=== PATIENT | female | born 1955 | race Caucasian/White ===

== ENCOUNTER 2020-11-05 07:47 | Outpatient (CLI) | payer MEDICARE, SELFPAY ==
[2020-11-05 12:29] LABS: Hematocrit 49.4 % (37.0-47.0); Hemoglobin 15.9 g/dL (12.0-15.0); Mean Corpuscular HGB Conc 32.2 g/dl (32-36); Mean Corpuscular Hemoglobin 30.3 pg (26-34); Mean Corpuscular Volume 94.3 fl (80-100); Mean Platelet Volume 9.5 fl (7.4-10.4); Platelet Count Result 312 k/mm3 (150-375); Red Blood Count 5.24 M/mm3 (4.2-5.4); Red Cell Distribution Width 14.3 % (11.5-14.5)
[2020-11-05 12:32] LABS: Anion Gap 6 mmol/L (8-16); Blood Urea Nitrogen 27 mg/dL (7-17); Calcium 9.3 mg/dL (8.4-10.2); Carbon Dioxide 28 mmol/L (22-30); Chloride 104 mmol/L (98-107); Estimated Glomerular Filt Rate 55; Glucose 131 mg/dL (65-105); HDL Direct 37 mg/dL; Potassium 4.4 mmol/L (3.4-5.0); Sodium 138 mmol/L (137-145)
[2020-11-05 12:44] LABS: LDL Cholesterol Direct 115 mg/dL
[2020-11-05 13:07] LABS: Microalbumin Urine Random 7.8 mg/L (0-16.7)
[2020-11-05 13:27] LABS: Vitamin B12 > 1000.0 pg/mL (239-931)
== END 2020-11-05 07:48 | disposition home or self-care (01) ==
LOC: ANHWCLAB 07:57
PROVIDERS: PCP Family Medicine; Referring Provider Internal Medicine Endocrinology, Diabetes & Metabolism; Visit Provider Internal Medicine Endocrinology, Diabetes & Metabolism
DX: E11.65 Type 2 diabetes mellitus with hyperglycemia (principal); E78.5 Hyperlipidemia, unspecified
CPT/HCPCS: 36415; 80048; 82043; 82607; 83718; 83721; 84443; 85027

== ENCOUNTER 2021-12-04 01:00 | Day surgery (SDC) | payer MEDICARE, SELFPAY ==
[2021-11-20 10:28] VITALS: BMI 29.2
[2021-12-04 10:39] VITALS: BP 139/55; PULSE 88; RESP 18; TEMP 36.3; O2SAT 99
--- NOTE | 2021-12-04 10:43 | PM.IMHP ---
H&P: HPI History of Present Illness Date/Time: 12/04/21 10:43 Chief Complaint: History of colon polyps. Narrative: This is a 66-year-old white female patient presents for colonoscopy. Patient has a prior history of adenomatous colon polyp in 2016. A serrated adenoma type polyp was removed in 2010. Patient reports that her current weight appetite bowel movements are normal. Patient family history is significant that her father had colon cancer. Patient presents today for neoplasia screening. Review of Systems Review of Systems: Review of systems is noncontributory. [facility] Past Medical History Medical History (Updated 12/04/21 @ 10:45 by Phong Cisneros MD) Asthma Back pain Depression Hypertension Migraine SOB (shortness of breath) Type 2 diabetes mellitus with hyperglycemia Surgical History Surgical History H/O breast biopsy H/O mastectomy Family History Family History Mother Family history of thyroid disease Hypertension Family history of arthritis Family history of malignant neoplasm of breast in first degree relative Family history of hearing loss Diabetes mellitus Family history of elevated blood lipids Depression Grandparent Family history of osteoporosis Family history of glaucoma Family history of arthritis Family history of hearing loss Hypertension Cerebrovascular accident Father Family history of glaucoma Family history of cataracts Family history of arthritis Carcinoma of colon Malignant neoplasm of prostate Family history of lung cancer Family history of lung disease Asthma Patient's father is Social History Social History Smoking packs per day: 1.5 Smoking cigarettes per day: 30.0 Years smoked: 34 Smoking pack-years: 51.00 Tobacco type: cigarettes Second hand tobacco smoke exposure: Yes Smoking end date: 07/12/01 Alcohol intake: never Living arrangements: with family Spiritual care concerns: No Meds Home Medications and Allergies Home Medications Medication Instructions Recorded Confirmed Type beclomethasone dipropionate 80 2 inh inhalation Q12H PRN 07/01/21 12/01/21 History mcg/actuation HFA breath activated Shortness Of Breath aerosol (Qvar RediHaler) cyclobenzaprine 10 mg tablet 10 mg PO BID PRN Muscle Spasm 07/01/21 12/01/21 History ibuprofen 800 mg tablet 800 mg PO BID PRN Pain 07/01/21 12/01/21 History naphazoline-pheniramine 0.11285 1 drp EACH EYE QID PRN allergy 07/01/21 12/01/21 History %-0.315 % eye drops (Opcon-A) symptoms flash glucose sensor (FreeStyle #1 ea 08/18/21 12/01/21 Rx Laurence 2 Sensor) insulin degludec 100 unit/mL (3 45 unit (0.45 mL) subcut DAILY 90 08/26/21 12/01/21 Rx mL) subcutaneous pen ( #42 mL FlexTouch U-100 insulin) pen needle, diabetic 32 gauge x #100 ea 09/30/21 12/01/21 Rx 5/32 (BD Ultra-Fine Mag Pen Needle) metformin 500 mg tablet,extended 1,000 mg PO BID 90 days #360 tabs 11/11/21 12/01/21 Rx release 24hr acetaminophen 500 mg tablet 1,000 mg PO BID 11/20/21 12/01/21 History (Tylenol Extra Strength) dulaglutide 4.5 mg/0.5 mL 4.5 mg subcut WEEKLY 11/20/21 12/01/21 History subcutaneous pen injector (Trulicity) empagliflozin 25 mg tablet 25 mg PO DAILY 11/20/21 12/01/21 History (Jardiance) escitalopram oxalate 20 mg tablet 20 mg PO DAILY 11/20/21 12/01/21 History fluticasone propionate 50 1 spray intranasal Q12H PRN 11/20/21 12/01/21 History mcg/actuation nasal Allergy Symptoms spray,suspension hydrochlorothiazide 12.5 mg capsule 12.5 mg PO DAILY 11/20/21 12/01/21 History lisinopril 40 mg tablet 40 mg PO DAILY 11/20/21 12/01/21 History rosuvastatin 5 mg tablet 5 mg PO DAILY 11/20/21 12/01/21 History sulfamethoxazole 800 1 tablet PO Q12H 10 days #20 tabs
[2021-12-04] MEDS: LACTATED RINGERS 1,000 ML 150 ML IV CONT (10:47)
[2021-12-04 11:02] LABS: Glucose Point of Care 105 mg/dl (65-105)
--- NOTE | 2021-12-04 11:27 | WPDANESEPPF ---
Anes - Initial Pre Proc Eval Procedure: Operation Date: 12/04/21 11:15 Proposed Procedures p Screening Colonoscopy - Phong Cisneros MD Date/Time: 12/04/21 11:27 Surgeon: Phong Cisneros MD Pre Op Diagnosis: family hx colon ca, hx of colon polyps Patient Data Age: 66 Gender: F Height: 1.68 m Weight: 79.7 kg Last Vital Signs Temp 97.4 F L 12/04/21 10:39 Pulse 88 12/04/21 10:39 Resp 18 12/04/21 10:39 BP 139/55 L 12/04/21 10:39 Pulse Ox 99 12/04/21 10:39 O2 Del Method Room Air 12/04/21 10:39 Allergies Allergy/AdvReac Type Severity Reaction Status Date / Time No Known Allergies Allergy Verified 12/04/21 10:32 Home Medications Medication Instructions Recorded Confirmed Type beclomethasone dipropionate 80 2 inh inhalation Q12H PRN 07/01/21 12/01/21 History mcg/actuation HFA breath activated Shortness Of Breath aerosol (Qvar RediHaler) cyclobenzaprine 10 mg tablet 10 mg PO BID PRN Muscle Spasm 07/01/21 12/01/21 History ibuprofen 800 mg tablet 800 mg PO BID PRN Pain 07/01/21 12/01/21 History naphazoline-pheniramine 0.24203 1 drp EACH EYE QID PRN allergy 07/01/21 12/01/21 History %-0.315 % eye drops (Opcon-A) symptoms flash glucose sensor (FreeStyle #1 ea 08/18/21 12/01/21 Rx Laurence 2 Sensor) insulin degludec 100 unit/mL (3 45 unit (0.45 mL) subcut DAILY 90 08/26/21 12/01/21 Rx mL) subcutaneous pen ( #42 mL FlexTouch U-100 insulin) pen needle, diabetic 32 gauge x #100 ea 09/30/21 12/01/21 Rx 5/32 (BD Ultra-Fine Mag Pen Needle) metformin 500 mg tablet,extended 1,000 mg PO BID 90 days #360 tabs 11/11/21 12/01/21 Rx release 24hr acetaminophen 500 mg tablet 1,000 mg PO BID 11/20/21 12/01/21 History (Tylenol Extra Strength) dulaglutide 4.5 mg/0.5 mL 4.5 mg subcut WEEKLY 11/20/21 12/01/21 History subcutaneous pen injector (Trulicity) empagliflozin 25 mg tablet 25 mg PO DAILY 11/20/21 12/01/21 History (Jardiance) escitalopram oxalate 20 mg tablet 20 mg PO DAILY 11/20/21 12/01/21 History fluticasone propionate 50 1 spray intranasal Q12H PRN 11/20/21 12/01/21 History mcg/actuation nasal Allergy Symptoms spray,suspension hydrochlorothiazide 12.5 mg capsule 12.5 mg PO DAILY 11/20/21 12/01/21 History lisinopril 40 mg tablet 40 mg PO DAILY 11/20/21 12/01/21 History rosuvastatin 5 mg tablet 5 mg PO DAILY 11/20/21 12/01/21 History sulfamethoxazole 800 1 tablet PO Q12H 10 days #20 tabs 12/01/21 12/04/21 Rx mg-trimethoprim 160 mg tablet (Bactrim DS) Laboratory Tests 12/04/21 10:58 POC Capillary Glucose 105 mg/dl mg/dl (65-105) Patient hx anesthesia problems: none Family hx anesthesia problems: none Results Review: All pre-operative results and documents have been reviewed as part of the pre-operative evaluation. [facility] Past Medical History Medical History (Updated 12/04/21 @ 10:45 by Phong Cisneros MD) Asthma Back pain Depression Hypertension Migraine SOB (shortness of breath) Type 2 diabetes mellitus with hyperglycemia Surgical History Surgical History H/O breast biopsy H/O mastectomy Family History Family History Mother Family history of thyroid disease Hypertension Family history of arthritis Family history of malignant neoplasm of breast in first degree relative Family history of hearing loss Diabetes mellitus Family history of elevated blood lipids Depression Grandparent Family history of osteoporosis Family history of glaucoma Family history of arthritis Family history of hearing loss Hypertension Cerebrovascular accident Father Family history of glaucoma Family history of cataracts Family history of arthritis Carcinoma of colon Malignant neoplasm of prostate Family history of lung cancer Family history of lung disease Asthma Patient's father is d
[2021-12-04 12:13] VITALS: BP 87/43; PULSE 72; RESP 17; O2SAT 95
[2021-12-04 12:22] LABS: Glucose Point of Care 97 mg/dl (65-105)
[2021-12-04 12:23] VITALS: BP 121/50; PULSE 66; RESP 20; O2SAT 99
[2021-12-04 12:33] VITALS: BP 125/50; PULSE 63; RESP 21; O2SAT 100
== END 2021-12-04 12:50 | disposition home or self-care (01) ==
PROVIDERS: PCP Family Medicine; Visit Provider Internal Medicine Gastroenterology
PROC: 0DJD8ZZ Inspection of Lower Intestinal Tract, Via Natural or Artificial Opening Endoscopic (ICD-10-PCS; CPT 45378; principal; 2021-12-04 11:15)
DX: Z12.11 Encounter for screening for malignant neoplasm of colon (principal); D12.3 Benign neoplasm of transverse colon; K63.5 Polyp of colon; K64.8 Other hemorrhoids; Z80.0 Family history of malignant neoplasm of digestive organs; I10 Essential (primary) hypertension; E11.9 Type 2 diabetes mellitus without complications; J45.909 Unspecified asthma, uncomplicated; F32.9 Major depressive disorder, single episode, unspecified; Z87.891 Personal history of nicotine dependence; Z79.4 Long term (current) use of insulin; Z79.84 Long term (current) use of oral hypoglycemic drugs
CPT/HCPCS: 45385; 82948; 88305; J2704; J7120